=== PATIENT | male | born 1990 | race Caucasian/White ===

== ENCOUNTER 2018-07-01 01:18 | Emergency (ER) | payer BC ==
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
[2018-07-01 02:15] VITALS: BP 155/95
== END 2018-07-01 01:35 ==
LOC: JD.ED 01:18
DX: S00.03XA Contusion of scalp, initial encounter (principal); Y08.89XA Assault by other specified means, initial encounter
CPT/HCPCS: 99283